=== PATIENT | female | born 1975 | race Caucasian/White ===

== ENCOUNTER 2017-07-15 21:24 | Emergency (ER) | payer SELFPAY ==
[~2017-07-15] VITALS: Ht 152.4 cm; Wt 55.5 kg
[~2017-07-15 21:24] MED LIST: PAIN MEDICINE
[2017-07-15 21:29] VITALS: BP 146/81
[2017-07-15] MEDS ORDERED: METF500T7 PO (21:38)
[2017-07-15] MEDS ORDERED: INSLAN SQ (21:38)
[2017-07-18 09:34] LABS: GLUCOSE,POINT OF CARE 404 MG/DL (70-110)
== END 2017-07-16 00:31 | disposition left against medical advice (07) ==
LOC: EMS 21:24
DX: K08.89 Other specified disorders of teeth and supporting structures (principal); E11.9 Type 2 diabetes mellitus without complications; Z53.21 Procedure and treatment not carried out due to patient leaving prior to being seen by health care provider
CPT/HCPCS: 82962

== ENCOUNTER 2020-04-04 11:27 | Emergency (ER) | payer MEDICAID ==
[~2020-04-04] VITALS: Ht 154.9 cm; Wt 59.1 kg
[~2020-04-04 11:27] MED LIST changes: +INSLAN SQ; +METF-911 PO; -PAIN MEDICINE
[2020-04-04 11:52] VITALS: BP 127/84
[2020-04-04 13:13] LABS: INFLUENZA TYPE A NEGATIVE FOR TYPE A (NEGATIVE); INFLUENZA TYPE B NEGATIVE FOR TYPE B (NEGATIVE)
== END 2020-04-04 13:41 | disposition home or self-care (01) ==
LOC: EMS 11:27
DX: U07.1 COVID-19 (principal)
CPT/HCPCS: 82962; 87804; 99283; U0003

== ENCOUNTER 2022-06-25 12:04 | Emergency (ER) | payer MEDICAID ==
[~2022-06-25] VITALS: Ht 162.6 cm; Wt 54.1 kg
[~2022-06-25 12:04] MED LIST changes: +METF-81 PO; -METF-911 PO
[2022-06-25] MEDS ORDERED: SITA50 PO (12:30)
[2022-06-25 13:54] LABS: BASOPHILS % (AUTO) 0.5 % (0.0-2.0); EOSINOPHILS % (AUTO) 0.7 % (1.0-6.0); HEMOGLOBIN 14.4 g/dL (12.0-16.0); LYMPHOCYTES # (AUTO) 1.1 K/uL (1.0-4.8); LYMPHOCYTES % (AUTO) 17.2 % (22.0-44.0); MEAN CORPUSCULAR HEMOGLOBIN 26.6 pg (26.0-34.0); MEAN CORPUSCULAR HGB CONC 32.8 G/dL (31.0-37.0); MEAN CORPUSCULAR VOLUME 81 fL (80-100); MONOCYTES # (AUTO) 0.3 K/uL (0.1-1.0); NEUTROPHILS # (AUTO) 4.9 K/uL (1.8-7.7); NEUTROPHILS % (AUTO) 77.6 % (40.0-70.0); PLATELET COUNT (AUTO) 261 K/uL (150-450); RED BLOOD CELL COUNT(AUTO) 5.42 MIL/uL (4.00-5.20); RED CELL DISTRIBUTION WIDTH 14.3 % (11.5-14.5)
[2022-06-25 14:15] LABS: ANION GAP 7 mmol/L (8-16); CALCIUM, TOTAL 9.3 mg/dL (8.8-10.5); CARBON DIOXIDE 28 mmol/L (22-29); CHLORIDE 103 mmol/L (98-107); CREATININE 0.65 mg/dL (0.60-1.30); GLOMERULAR FILTR. RATE CALC > 60 mL/min (>60); GLUCOSE,RANDOM 157 mg/dL (70-110); POTASSIUM 4.3 mmol/L (3.5-5.1); SODIUM SERUM 138 mmol/L (136-145); UREA NITROGEN, BLOOD 9 mg/dL (7-18)
[2022-06-25 14:16] LABS: ALANINE AMINOTRANSFERASE 18 U/L (12-78); ALBUMIN 4.4 g/dL (3.4-5.0); ALKALINE PHOSPHATASE 88 U/L (46-116); ASPARTATE AMINOTRANSFERASE 16 U/L (15-37); BILIRUBIN,TOTAL 0.3 mg/dL (0.1-1.0); LIPASE 68 U/L (73-393); TOTAL PROTEIN, SERUM 8.4 g/dL (6.4-8.2)
[2022-06-25 14:22] LABS: LACTIC ACID 0.6 mmol/L (0.4-2.0)
[2022-06-25 14:32] LABS: ACETONE,BLOOD NEGATIVE (NEGATIVE)
[2022-06-25 14:48] LABS: APPEARANCE,URINE CLEAR (CLEAR); BILIRUBIN,URINE NEGATIVE (NEGATIVE); GLUCOSE, URINE (UA) >=1000 mg/dL (NEGATIVE); LEUKOCYTE ESTERASE ,URINE NEGATIVE (NEGATIVE); NITRATE,URINE NEGATIVE (NEGATIVE); OCCULT BLOOD,URINE NEGATIVE (NEGATIVE); PROTEIN,URINE NEGATIVE (NEGATIVE); SPECIFIC GRAVITIY, URINE 1.019 (1.003-1.030); UROBILINOGEN,URINE <=1.0 mg/dL (<=1.0)
[2022-06-25 15:04] LABS: BACTERIA,URINE None Seen /HPF (None Seen); RBC,URINE None Seen /HPF (0-2); SQUAMOUS EPITHELIAL CELL,UR Few /LPF (None Seen)
[2022-06-25] MEDS ORDERED: MICO14CR6 TP (15:20)
[2022-06-25] MEDS ORDERED: MICO45CR44 VG (15:20)
[2022-06-25 15:21] VITALS: BP 122/76
== END 2022-06-25 15:27 | disposition home or self-care (01) ==
LOC: EMS 12:04
DX: B37.31 Acute candidiasis of vulva and vagina (principal); E11.65 Type 2 diabetes mellitus with hyperglycemia; Z90.49 Acquired absence of other specified parts of digestive tract; Z98.890 Other specified postprocedural states
CPT/HCPCS: 99283; 80053; 82009; 82962; 83605; 83690; 84703; 85025; 36415; 81001; G0480